=== PATIENT | male | born 1985 | race Caucasian/White ===

== ENCOUNTER 2016-06-08 11:34 | Emergency (ER) | payer SELFPAY ==
[~2016-06-08] VITALS: Ht 182.9 cm; Wt 66.1 kg
[~2016-06-08 11:34] MED LIST: IBUPROFEN800 MG PO; METHOCARBAMOL750 MG PO; NEURONTIN300 MG PO; PANTOPRAZOLE SO40 MG PO; POLYMYXIN B-TMP10 ML RIGHT EYE; PRAZOSIN HCL1 MG PO; SEROQUEL50 MG PO; ULTRAM50 MG PO; VENTOLIN HFA18 GM IH; VICODIN 5-3001 EACH PO; WELLBUTRIN100 MG PO; ZITHROMAX Z-PA250 MG PO
[2016-06-08 11:37] VITALS: BP 131/87
== END 2016-06-08 12:57 | disposition left against medical advice (07) ==
LOC: EME 11:34
DX: S81.811A Laceration without foreign body, right lower leg, initial encounter (principal); W25.XXXA Contact with sharp glass, initial encounter; Z53.21 Procedure and treatment not carried out due to patient leaving prior to being seen by health care provider
CPT/HCPCS: 99281; 99282